=== PATIENT | male | born 1985 | race Caucasian/White ===

== ENCOUNTER 2021-05-25 12:51 | Emergency (ER) | payer MEDICAID, OTHER ==
[2021-05-25] MEDS ORDERED: FUROSEMIDE 20 MG TABLET PO STA (13:32)
[2021-05-25] MEDS ORDERED: SULFAMETH/TRIMETH DS 800/160 MG TABLET PO STA (13:33)
[2021-05-25] MEDS ORDERED: cephALEXin 250 MG CAPSULE PO STA (13:33)
--- NOTE | 2021-05-25 13:38 | ED Physician Documentation ---
History of Present Illness - Stated complaint Stated Complaint: SWOLLEN FEET,PX - Chief complaint Chief Complaint: Ext Problem - History obtained from History obtained from: Patient - History of Present Illness Timing: How many weeks ago (several) Pain level max: 0 Pain level now: 0 - Additonal information Additional information: Patient is a 35-year-old male who presents to the emergency department complaining of swelling to the bilateral feet and ankles. Ongoing for the past several weeks. He states that he has had fluid draining from both of his legs. He then developed blistering on the right lower extremity that now appear pustular. No fevers. No chills. Nothing makes it better or worse. Denies any medical history. Does not take any medications at home. Does vape. No numbness or tingling Review of Systems Constitutional: denies: Fever, Chills Cardiac: denies: Chest pain / pressure Respiratory: denies: Dyspnea, Cough GI: denies: Nausea, Vomiting, Diarrhea Skin: denies: Rash Musculoskeletal: denies: Neck pain, Back pain PD PAST MEDICAL HISTORY - Past Medical History Past Medical History: No - Past Surgical History Past Surgical History: No - Present Medications Home Medications: Ambulatory Orders Medication Instructions Recorded Confirmed Furosemide [Lasix] 20 mg PO DAILY #7 tablet 05/25/21 Sulfamethox/Trimeth 800/160 1 each PO BID #14 tablet 05/25/21 [Bactrim Ds 800/160] cephALEXin [Keflex] 500 mg PO Q6H #28 cap 05/25/21 - Allergies Allergies/Adverse Reactions: Allergies Allergy/AdvReac Type Severity Reaction Status Date / Time No Known Drug Allergies Allergy Verified 05/25/21 12:54 - Living Situation Living Arrangement: reports: At home - Social History Does the pt smoke?: Yes Does the pt drink ETOH?: Yes - Family History Family history: reports: Non contributory PD ED PE NORMAL - Vitals Vital signs reviewed: Yes - General General: Alert and oriented X 3, No acute distress, Well developed/nourished - HEENT HEENT: PERRL, Moist mucous membranes - Neck Neck: Supple, no meningeal sign - Cardiac Cardiac: RRR, Strong equal pulses - Respiratory Respiratory: No respiratory distress, Clear bilaterally - Abdomen Abdomen: Soft, Non tender, Non distended - Derm Derm: Warm and dry - Extremities Extremities: Other (Pitting edema to the bilateral lower extremities, 2+. Right greater than left. There is weeping of fluid from the right calf. There are several pustules as well over the right lower extremity. Mild delayed cap refill of the right foot compared to the left, but both are less than 2 seconds) - Neuro Neuro: Alert and oriented X 3 - Psych Psych: Normal mood, Normal affect Results - Vitals Vitals: Vital Signs - 24 hr 05/25/21 05/25/21 12:54 13:25 Temperature 36.5 C Heart Rate 100 95 Respiratory 16 Rate Blood Pressure 159/89 H 159/89 H O2 Saturation 100 100 Oxygen O2 Source Room air - Labs Labs: Laboratory Tests 05/25/21 05/25/21 13:38 13:38 WBC 7.0 RBC 5.29 Hgb 15.2 Hct 44.9 MCV 84.9 MCH 28.7 MCHC 33.9 RDW 12.2 Plt Count 297 MPV 9.3 Neut # (Auto) 4.9 Lymph # (Auto) 1.5 Fajardo # (Auto) 0.4 Eos # (Auto) 0.2 Baso # (Auto) 0.0 Absolute Nucleated RBC 0.00 Nucleated RBC % 0.0 Sodium 135 Potassium 3.4 L Chloride 98 L Carbon Dioxide 29 Anion Gap 8.0 BUN 15 Creatinine 1.0 Estimated GFR (MDRD) 84 L Glucose 89 Calcium 8.8 Total Bilirubin 0.9 AST 28 ALT 47 Alkaline Phosphatase 60 Total Protein 7.3 Albumin 4.1 Globulin 3.2 Albumin/Globulin Ratio 1.3 - Rads (name of study) duplex US R LE Radiology: Final report received, EMP read contemporaneously, See rad report (no DVT) PD MEDICAL DECISION MAKING - ED course Complexity details: reviewed results, re-evaluated patient, considered differential, d/w patient ED course: There is no DVT on ultrasound. He does have enlarged right inguinal lymph nodes, likely reactive. Has lower extremity soft tissue edema on ultrasound and clinically. We will place the patient on Lasix to decrease the peripheral edema. Appears to have blistering secondary to the amount of edema he has. These blisters do appear secondarily infected and so we will place him on antibiotics as well. Patient counseled regarding signs and symptoms for which I believe and urgent re-evaluation would be necessary. Patient with good understanding of and agreement to plan and is comfortable going home at this time This document was made in part using voice recognition software. While efforts are made to proofread this document, sound alike and grammatical errors may occur. Departure - Departure Disposition: 01 Home, Self Care Clinical Impression: Peripheral edema Cellulitis Qualifiers: Site of cellulitis: extremity Site of cellulitis of extremity: lower extremity Laterality: right Qualified Code(s): L03.115 - Cellulitis of right lower limb Condition: Good Instructions: ED Infec Skin Cellulitis, ED Edema Legs Bilateral Follow-Up: your,doctor in 1 week [Other] Prescriptions: Sulfamethox/Trimeth 800/160 [Bactrim Ds 800/160] 1 each PO BID #14 tablet cephALEXin [Keflex] 500 mg PO Q6H #28 cap Furosemide [Lasix] 20 mg PO DAILY #7 tablet Comments: Your prescriptions were sent to [facility] in [place] Please follow-up with your doctor in 1 week for recheck. Return if you worsen. This should improve over the next week. Elevate your legs whenever possible.
[2021-05-25 13:43] LABS: BASOPHILS % (AUTO) 0.4 %; EOSINOPHILS # (AUTO) 0.2 10^3/uL (0.0-0.7); EOSINOPHILS % (AUTO) 3.4 %; HCT - HEMATOCRIT 44.9 % (42.0-52.0); HGB - HEMOGLOBIN 15.2 g/dL (14.0-18.0); LYMPHOCYTES # (AUTO) 1.5 10^3/uL (1.5-3.5); LYMPHOCYTES % (AUTO) 21.3 %; MEAN CORPUSCULAR HEMOGLOBIN 28.7 pg (27.0-31.0); MEAN CORPUSCULAR HGB CONC 33.9 g/dL (32.0-36.0); MEAN CORPUSCULAR VOLUME 84.9 fL (80.0-94.0); MEAN PLATELET VOLUME 9.3 fL (7.4-11.4); MONOCYTES # (AUTO) 0.4 10^3/uL (0.0-1.0); MONOCYTES % (AUTO) 5.1 %; NEUTROPHILS # (AUTO) 4.9 10^3/uL (1.5-6.6); NEUTROPHILS % (AUTO) 69.5 %; PLT - PLATELET COUNT 297 10^3/uL (130-450); RED BLOOD COUNT 5.29 10^6/uL (4.70-6.10); RED CELL DISTRIBUTION WIDTH 12.2 % (12.0-15.0)
[2021-05-25 13:57] LABS: ALBUMIN 4.1 g/dL (3.2-5.5); ALBUMIN/GLOBULIN RATIO 1.3 (1.0-2.2); BILIRUBIN,TOTAL 0.9 mg/dL (0.2-1.0); CALCIUM 8.8 mg/dL (8.5-10.3); POTASSIUM 3.4 mmol/L (3.5-5.0); TOTAL PROTEIN 7.3 g/dL (6.7-8.2)
--- NOTE | 2021-05-25 14:29 | Ultrasound Report ---
PROCEDURE: Duplex Ext Veins Right INDICATIONS: R LE swelling, pain TECHNIQUE: Real-time imaging, as well as color and pulse Doppler interrogation, were performed of the lower extr emity deep veins from the inguinal ligament to the popliteal fossa. COMPARISON: None. FINDINGS: The deep veins are normally compressible, and free of intraluminal thrombus. Color and pu lse Doppler demonstrate normal phasic intraluminal flow. There is normal augmentation response to di stal compression maneuver. Prominent right inguinal lymph nodes are seen with internal increased vascularity and measures up to 3 x 1.3 x 3.7 cm in size. Right lower extremity soft tissue edema is also seen. IMPRESSION: 1. No evidence of DVT in visualized right lower extremity veins. 2. Enlarged right inguinal lymph nodes concerning for reactive inflammatory nodes. Right lower extrem ity soft tissue edema. Reviewed by: Dimas Seymour MD on 05/25/2021 2:27 PM PST Approved by: Dimas Seymour MD on 05/25/2021 2:27 PM PST Station ID: [id number]
[2021-05-25 14:46] VITALS: BP 140/88
== END 2021-05-25 14:45 | disposition home or self-care (01) ==
LOC: ED 12:51
DX: L03.115 Cellulitis of right lower limb (principal); R59.0 Localized enlarged lymph nodes; M79.89 Other specified soft tissue disorders
CPT/HCPCS: 36415; 80053; 85025; 93971; 99284; A9270